=== PATIENT | male | born 1955 | race Caucasian/White ===

== ENCOUNTER 2020-06-14 07:04 | Outpatient (CLI) | payer MEDICARE, OTHER ==
[~2020-06-14] VITALS: Ht 177.8 cm; Wt 99.8 kg
[2020-06-14 07:40] LABS: HEMOGLOBIN 13.8 gm/dl (14.0-17.5); RED BLOOD COUNT 4.21 M/UL (4.20-5.50); WHITE BLOOD COUNT 9.8 K/UL (4.5-11.0)
[2020-06-14] MEDS ORDERED: METFORMIN HCL500 MG PO (07:44)
[2020-06-14] MEDS ORDERED: METOPROLOL TAR100 MG PO (07:44)
[2020-06-14] MEDS ORDERED: ATORVASTATIN CA80 MG PO (07:44)
[2020-06-14] MEDS ORDERED: AMLODIPINE BESY10 MG PO (07:44)
[2020-06-14] MEDS ORDERED: STOOL SOFTENER100 M1 PO (07:45)
[2020-06-14] MEDS ORDERED: SPIRONOLACTONE25 MG PO (07:45)
[2020-06-14 08:11] LABS: BUN/CREATININE RATIO 12 (0-10)
[2020-06-14] MEDS ORDERED: ASPIRIN EC81 MG PO (14:29)
[2020-06-14] MEDS ORDERED: CLOPIDOGREL75 MG PO (14:29)
--- NOTE | 2020-06-14 16:21 | NUR ---
PATIENT ARRIVED TO ME IN PCU AT 1318. I WAS TOLD IN REPORT BY JEANNETTE THAT BEDREST ENDED AT 1430. THE ORDERS STATED BEDREST WAS UP AT 1330. DR. BARCENAS ARRIVED ON THE FLOOR TO SEE THE PATIENT AT 1422 AND STATED PATIENT WOULD BE ABLE TO GO HOME TODAY. PATIENT HAD NOT YET BEEN OUT OF BED SO DR. BARCENAS STATED IF HE HAD BEEN UP FOR 30MINS AND SITE WAS STILL OKAY, PATIENT COULD GO HOME IMMEDIATELY. DR. BARCENAS DID PUT DISCHARGE ORDERS IN.
--- NOTE | 2020-06-14 16:25 | NUR ---
PATIENT WAS BEING DISCHARGED HOME FOLLOWING A CATH PROCEDURE WITH STENT PLACEMENT EARLIER THIS MORNING. PATIENT WAS GIVEN EDUCATION ON WHAT TO LOOK FOR IF HE NEEDED TO BEEN SEEN AT THE CLOSEST ER POSSIBLE. I EDUCATED PATIENT TO ASSESS THE GROIN SITE MANY TIMES A DAY AND IF THERE WERE ANY BLEEDING, HEMATOMAS, OR LARGE AMOUNTS OF BRUISING TO GO TO NEAREST ER IMMEDIATELY. I ALSO EDUCATED PATIENT ON FEMORAL SITE CARE AND THAT PAPERWORK DID GO HOME WITH HIM A REMINDER. PATIENT UNDERSTOOD DIRECTIONS AND WILL HAVE A FOLLOW UP IN 1WK.
== END 2020-06-14 16:05 | disposition home or self-care (01) ==
LOC: PROG CARE 07:04 → CATH 07:04 → PROG CARE 13:18 → CATH 16:05
PROVIDERS: Internal Medicine Cardiovascular Disease
DX: I25.119 Atherosclerotic heart disease of native coronary artery with unspecified angina pectoris (principal); E11.9 Type 2 diabetes mellitus without complications; E78.5 Hyperlipidemia, unspecified; I11.9 Hypertensive heart disease without heart failure; G62.9 Polyneuropathy, unspecified; R94.39 Abnormal result of other cardiovascular function study; Z01.818 Encounter for other preprocedural examination
CPT/HCPCS: 36415; 71045; 80048; 82962; 85025; 85347; 85610; 93005; 99152; 99153; C1725; C1760; C1769; C1874; C1887; C9600; J0461; J1644; J2250; J3010; J7030; Q9967